=== PATIENT | female | born 1970 | race Caucasian/White ===

== ENCOUNTER → 2017-12-22 | Outpatient (CLI) | payer BC, OTHER ==
[2017-12-22 10:51] VITALS: BP 143/93; PULSE 91; TEMP 98.2
[2017-12-22 10:59] VITALS: BMI 60.1
[2017-12-22 11:35] LABS: HCT 36.8 % (34.0-46.0); HGB 12.3 gm/dL (11.4-16.0); MCH 28.3 pg (25.0-35.0); MCHC 33.4 g/dL (31.0-37.0); MCV 84.9 fL (80.0-100.0); Mean Platelet Volume 7.5; Platelet Count 271 k/uL (150-450); RBC 4.34 m/uL (3.80-5.40); RDW 13.2 % (11.5-15.5)
[2017-12-22 11:48] LABS: ALT 21 U/L (9-52); AST 19 U/L (14-36); Albumin 4.3 g/dL (3.5-5.0); Alkaline Phosphatase 107 U/L (38-126); Anion Gap 11 mmol/L; Blood Urea Nitrogen 16 mg/dL (7-17); Calcium 9.7 mg/dL (8.4-10.2); Carbon Dioxide 26 mmol/L (22-30); Chloride 104 mmol/L (98-107); Cholesterol 180 mg/dL (<200); Glucose 100 mg/dL (74-99); HDL Cholesterol 51 mg/dL (40-60); LDL Cholesterol,Calculated 116 mg/dL (0-99); Potassium 4.5 mmol/L (3.5-5.1); Sodium 141 mmol/L (137-145); Total Bilirubin 0.3 mg/dL (0.2-1.3); Total Protein 7.5 g/dL (6.3-8.2); Triglycerides 66 mg/dL (<150)
[2017-12-22 15:48] LABS: Iron Saturation 22.26 (12.00-45.00)
[2017-12-22 15:57] LABS: Folate, Serum 9.5 ng/mL
[2017-12-22 16:25] LABS: Vitamin D 25 Hydroxy 12.8 ng/mL (30.0-100.0)
--- NOTE | 2018-01-21 22:03 | P.HPBAR ---
Bariatric H&P - History & Physicial H&P Date: 12/22/17 History & Physicial: Visit/CC: Patient initial contact: Initial weight: Initial weight in pounds: Height: Initial BMI: Last weight: Current weight: Current weight in pounds: Current BMI: Margaret body weight (based on NIH guidelines): Excess body weight loss: The patient is a 47 year-old F who presents for Bariatric Assessment. DATE OF SERVICE: 12/22/2017 REASON FOR CONSULTATION: Initial bariatric evaluation. HISTORY OF PRESENT ILLNESS: Roxann Nielsen is a 47-year-old female presents for her initial assessment at the bariatric program. She is considering the gastric bypass. She is currently undergoing medical supervised weight loss with her primary care provider. She denies any diabetes in her family. She reports chronic back pain. She reports need for bilateral knee replacement where the right his been replaced secondary to end-stage osteoarthritis. Her highest personal weight was 389 pounds. Today she comes in with 342 pounds. She has lost 47 pounds with medical supervised weight loss. She has achieved 19 % excess weight loss. She reports ALLERGIES to eating oranges. No reports of inflammatory bowel disease in herself or family. No reports of lupus or multiple sclerosis, stomach or esophageal cancer within herself or her family. She reports moderate gastroesophageal reflux disease. She also reports chronic snoring and potential obstructive sleep apnea. Currently she is exercising daily. She has now lost 47 pounds since medical supervised weight loss in less than a year. She is looking to making lifestyle changes on behalf of her children. Her height of 5 foot 3-1/4 inch, her ideal body weight is 140 pounds. She is 202 pounds overweight. Her initial body mass index was 60.5 now down to 60.2. Again her highest weight was 389 pounds. Today she comes at a weight of 342 pounds. PAST MEDICAL HISTORY: 1. Morbid obesity. 2. Body mass index of 68.5, highest. 3. Osteoarthritis of the knees. 4. Obstructive sleep apnea. PAST SURGICAL HISTORY: 1. Right knee replacement HOME MEDICATIONS: 1. Adipex ALLERGIES: Denies. SOCIAL HISTORY: No active tobacco use. Past tobacco abuse FAMILY HISTORY: No family history of ulcerative colitis disease or Crohn's disease. Family history of morbid obesity. No lupus in the family. No reports of stomach or esophageal cancer. REVIEW OF ORGAN SYSTEMS: CONSTITUTIONAL: Her height of 5 foot 3-1/4 inch, her ideal body weight is 140 pounds. She is 202 pounds overweight. Her initial body mass index was 60.5 now down to 60.2. Again her highest weight was 389 pounds. Today she comes at a weight of 342 pounds. HEENT: Denies any active troubles with vision or hearing. No troubles with swallowing. ENDOCRINE: No diabetes. No hypothyroidism. CARDIOVASCULAR: No reports of palpitations or heart attacks or chest pain. RESPIRATORY: Has daytime somnolence. No asthma. GI: Denies any bright red blood per rectum. No diarrhea or constipation. Has gastroesophageal reflux disease. MUSCULOSKELETAL: Has lower back pain and joint pain. Has osteoarthritis of the knees. NEURO: No headaches. No seizure disorders. PSYCH: No depression or suicidal ideation. RHEUMATOLOGIC: No lupus. No rheumatoid arthritis. HEMATOLOGIC: Denies any abnormal bleeding or bruising. No personal history of DVTs. SKIN: No rash. No skin cancer. PHYSICAL EXAM: VITAL SIGNS: Height 5 foot 3.25 inches, weight 342 pounds. BMI 60.2. Vital Signs Temp 98.2 F 12/22/17 10:45 Pulse 91 12/22/17 10:45 Resp BP 143/93 12/22/17 10:45 Pulse Ox GENERAL: Well-developed in no acute distress. HEENT: No scleral icterus. Extraocular movements grossly intact. Hears conversational speech. No nasal drainage. NECK: Supple without lymphadenopathy. CHEST: Nonlabored respirations with equal bilateral excursions. CARDIOVASCULAR: Regular rate and regular rhythm. Distal 2+ pulses. ABDOMEN: Obese, soft, nontender, nondistended. MUSCULOSKELETAL: No clubbing, cyanosis. Gross strength 5/5 distal lower extremities. NEURO: No focal or lateralizing signs. Cranial nerves 2 through 12 grossly within normal limits. PSYCH: Appropriate affect. Alert and oriented to person, place and time. SKIN: Good skin turgor. Well perfused. ASSESSMENT: 1. Morbid obesity due to excess calories. 2. Body mass index of 68.5 down to 60.2. 3. Osteoarthritis of the knees. 4. Previous right knee replacement 5. Osteoarthritis of the lower back. 6. Obstructive sleep apnea. 7. Hypertensive heart disease. 8. Dietary surveillance and counseling. 9. Family history of morbid obesity. PLAN: 1. Surgical options including a band, gastric bypass, sleeve gastrectomy were described in detail. Alternatives such as gastric balloon including duodenal switch were described. 2. The [place] [facility] collaborative data and outcomes calculator were described with surgical options. 3. Recommend a bariatric metabolic panel to evaluate for micro- including macronutrient deficiencies. 4. For history of daytime somnolence, recommend evaluation and treatment for sleep apnea. 5. Dietary surveillance and counseling was reviewed, I have asked increased protein intake to at least 80 grams daily. I have recommended [facility] to monitor diet. 6. Will need cardiac risk assessment. 7. Recommend medical risk assessment. 8. Psych assessment per insurance guidelines. 9. Follow up upon completion of upper endoscopy. 10. Recommend 12-lead EKG prior history of essential hypertension. 11. Recommend upper endoscopy. Thank you for this consultation. Laboratory Last Values WBC 7.0 k/uL (3.8-10.6) 12/22/17 11:13 RBC 4.34 m/uL (3.80-5.40) 12/22/17 11:13 Hgb 12.3 gm/dL (11.4-16.0) 12/22/17 11:13 Hct 36.8 % (34.0-46.0) 12/22/17 11:13 MCV 84.9 fL (80.0-100.0) 12/22/17 11:13 MCH 28.3 pg (25.0-35.0) 12/22/17 11:13 MCHC 33.4 g/dL (31.0-37.0) 12/22/17 11:13 RDW 13.2 % (11.5-15.5) 12/22/17 11:13 Plt Count 271 k/uL (150-450) 12/22/17 11:13 Sodium 141 mmol/L (137-145) 12/22/17 11:13 Potassium 4.5 mmol/L (3.5-5.1) 12/22/17 11:13 Chloride 104 mmol/L (98-107) 12/22/17 11:13 Carbon Dioxide 26 mmol/L (22-30) 12/22/17 11:13 Anion Gap 11 mmol/L 12/22/17 11:13 BUN 16 mg/dL (7-17) 12/22/17 11:13 Creatinine 0.60 mg/dL (0.52-1.04) 12/22/17 11:13 Est GFR (MDRD) Af Amer >60 (>60 ml/min/1.73 sqM) 12/22/17 11:13 Est GFR (MDRD) Non-Af >60 (>60 ml/min/1.73 sqM) 12/22/17 11:13 Glucose 100 mg/dL (74-99) H 12/22/17 11:[address] Glu mg/dL 97 12/22/17 11:13 Hemoglobin A1c 5.0 % (4.0-6.0) 12/22/17 11:13 Calcium 9.7 mg/dL (8.4-10.2) 12/22/17 11:13 Iron 75 ug/dL (50-170) 12/22/17 11:13 TIBC 337 ug/dL (228-460) 12/22/17 11:13 Iron Saturation 22.26 (12.00-45.00) 12/22/17 11:13 Ferritin 13.9 ng/mL (10.0-291.0) 12/22/17 11:13 Total Bilirubin 0.3 mg/dL (0.2-1.3) 12/22/17 11:13 AST 19 U/L (14-36) 12/22/17 11:13 ALT 21 U/L (9-52) 12/22/17 11:13 Alkaline Phosphatase 107 U/L (38-126) 12/22/17 11:13 Total Protein 7.5 g/dL (6.3-8.2) 12/22/17 11:13 Albumin 4.3 g/dL (3.5-5.0) 12/22/17 11:13 Triglycerides 66 mg/dL (<150) 12/22/17 11:13 Cholesterol 180 mg/dL (<200) 12/22/17 11:13 LDL Cholesterol, Calc 116 mg/dL (0-99) H 12/22/17 11:13 HDL Cholesterol 51 mg/dL (40-60) 12/22/17 11:13 Vitamin B1 51 ug/L (38-122) 12/22/17 11:13 Vitamin B12 744.0 pg/mL (200.0-944.0) 12/22/17 11:13 Vitamin D 25-Hydroxy 12.8 ng/mL (30.0-100.0) L 12/22/17 11:13 Folate 9.5 ng/mL 12/22/17 11:13 TSH 1.470 mIU/L (0.465-4.680) 12/22/17 11:13 EKG EKG PERFORMED 12/22/17 11:13 Vitamin D is low. Recommend vitamin D supplement EKG is abnormal. Will need cardiac risk assessment. Results - Labs 12/22/17 11:13 12/22/17 11:13 Bariatric Checklist Checklist: Plan: Checklist: EGD: 1. Hiatal hernia: 2. H. Pylori: HgbA1c: Vitamin D: Smoking: Primary care physician referral: Psychiatry clearance: Cardiology clearance: Sleep study: Diet journal: VTE risk score: VTE risk level: Rehab needs at discharge:
== END | disposition home or self-care (01) ==
LOC: BARWHC3 10:00
PROVIDERS: ATTEND Surgery Plastic and Reconstructive Surgery
DX: Z48.815 Encounter for surgical aftercare following surgery on the digestive system (principal); E66.01 Morbid (severe) obesity due to excess calories; M17.0 Bilateral primary osteoarthritis of knee; M47.816 Spondylosis without myelopathy or radiculopathy, lumbar region; G47.33 Obstructive sleep apnea (adult) (pediatric); E88.81 Metabolic syndrome and other insulin resistance; E44.0 Moderate protein-calorie malnutrition; E55.9 Vitamin D deficiency, unspecified; I11.9 Hypertensive heart disease without heart failure; Z68.44 Body mass index [BMI] 60.0-69.9, adult; Z71.3 Dietary counseling and surveillance; Z96.651 Presence of right artificial knee joint; Z79.899 Other long term (current) drug therapy; Z87.891 Personal history of nicotine dependence
CPT/HCPCS: 36415; 80053; 80061; 82306; 82607; 82728; 82746; 83036; 83540; 83550; 84425; 84443; 85027; 93005; 99211

== ENCOUNTER 2018-02-01 09:08 | Day surgery (SDC) | payer BC, OTHER ==
[2018-01-30 15:50] VITALS: BMI 61.2
[~2018-02-01 09:08] MED LIST: LACTATED RINGERS 1,000 ML IV SCH
--- NOTE | 2018-02-01 09:50 | P.GSHP ---
History of Present Illness H&P Date: 02/01/18 CHIEF COMPLAINT: GERD HISTORY OF PRESENT ILLNESS: The patient is a 47-year-old female who presents reports gastroesophageal reflux disease. Upper endoscopy was offered for further evaluation and management. PAST MEDICAL HISTORY: Please see list. PAST SURGICAL HISTORY: Please see list. MEDICATIONS: Please see list. ALLERGIES: Please see list. SOCIAL HISTORY: No illicit drug use FAMILY HISTORY: No reports of Crohn disease or ulcerative colitis. REVIEW OF ORGAN SYSTEMS: CONSTITUTIONAL: No reports of fevers or chills. GI: Denies any blood in stools or constipation. PHYSICAL EXAM: VITAL SIGNS: Stable GENERAL: Well-developed and pleasant in no acute distress. HEENT: No scleral icterus. Extraocular movements grossly intact. Moist buccal mucosa. NECK: Supple without lymphadenopathy. CHEST: Unlabored respirations. Equal bilateral excursions. CARDIOVASCULAR: Regular rate and rhythm. Distal 2+ pulses. ABDOMEN: Soft, nondistended. MUSCULOSKELETAL: No clubbing, cyanosis, or edema. ASSESSMENT: 1. Gastroesophageal reflux disease PLAN: 1. Recommend proceeding with an upper endoscopy Past Medical History Past Medical History: Cancer, Sleep Apnea/CPAP/BIPAP Additional Past Medical History / Comment(s): mild sleep apnea-just had sleep study, hx cervical cancer years ago, hx. kidney stones History of Any Multi-Drug Resistant Organisms: None Reported Past Surgical History: Orthopedic Surgery Additional Past Surgical History / Comment(s): right knee surg.-took bone graft from hip Past Anesthesia/Blood Transfusion Reactions: No Reported Reaction Past Psychological History: No Psychological Hx Reported Smoking Status: Former smoker Past Alcohol Use History: None Reported Additional Past Alcohol Use History / Comment(s): quit smoking 2002, smoked on & off since 1988 prior to quitting Past Drug Use History: None Reported - Past Family History Mother Family Medical History: No Reported History Medications and Allergies Home Medications Medication Instructions Recorded Confirmed Type Phentermine HCl [Adipex P] 15 mg PO DAILY 12/22/17 01/30/18 History Allergies Allergy/AdvReac Type Severity Reaction Status Date / Time No Known Allergies Allergy Verified 01/30/18 15:20
[2018-02-01 10:09] VITALS: TEMP 99.1
[2018-02-01] MEDS ORDERED: LIDOCAINE 1% 20 ML VIAL (10MG/ML) FOR IV START INTRADERMA ONE (10:09)
[2018-02-01] MEDS ORDERED: PROPOFOL 10 MG/ML 20 ML VIAL IV ONE (10:20)
[2018-02-01] MEDS ORDERED: LIDOCAINE 1% INJ 10MG/ML (20 ML MDV) ONE (10:20)
--- NOTE | 2018-02-01 10:33 | P.PCN ---
Date of Procedure: 02/01/18 Description of Procedure: PREOPERATIVE DIAGNOSIS: Gastroesophageal reflux disease. Morbid obesity. POSTOPERATIVE DIAGNOSIS: Morbid obesity. Gastritis. Gastroesophageal reflux disease. Diaphragmatic hiatal hernia without obstruction. OPERATION: Esophagogastroduodenoscopy with biopsies along antrum. SURGEON: Louisa Strong MD ANESTHESIA: MAC. INDICATIONS: The patient is a 47-year-old female who presents with a history of reflux disease. Benefits and risks of the procedure were described. Informed consent was obtained. DESCRIPTION: The patient was brought into the endoscopy suite and laid in the left lateral decubitus position. An Olympus gastroscope was passed along the posterior oropharynx down to the distal esophagus where the squamocolumnar junction was encountered at 36 cm from the incisors. The stomach was entered and no bile reflux was found. Additional findings are listed below. Biopsies with cold forceps were obtained of the antrum. The first through third portion of the duodenum was examined and unremarkable. Retroflexion of the scope confirmed Hill grade 4 lower esophageal valve. The squamocolumnar junction demostrated LA grade A erosive esophagitis. The stomach was desufflated. The patient tolerated the procedure well. FINDINGS: Squamocolumnar junction 36 cm from the incisors. Diaphragmatic hiatus at 38 cm. Hiatal hernia 2 cm. Hill grade 4 lower esophageal valve. LA grade A erosive esophagitis. No active duodenitis. Mild gastritis. RECOMMENDATIONS: Further recommendations pending results of pathology report. Upper endoscopy as needed. Plan - Discharge Summary New Discharge Prescriptions: No Action Phentermine HCl [Adipex P] 15 mg PO DAILY Topiramate [Topamax] 1 tab PO BID Discharge Medication List Phentermine HCl [Adipex P] 15 mg PO DAILY 12/22/17 [History] Topiramate [Topamax] 1 tab PO BID 02/01/18 [History]
[2018-02-01 10:57] VITALS: RESP 16
[2018-02-01 11:32] VITALS: BP 130/78; PULSE 73
== END 2018-02-01 11:33 | disposition home or self-care (01) ==
LOC: ORWHC2ENDO 09:08
PROVIDERS: ATTEND Surgery Plastic and Reconstructive Surgery
DX: K29.50 Unspecified chronic gastritis without bleeding (principal); K22.10 Ulcer of esophagus without bleeding; K44.9 Diaphragmatic hernia without obstruction or gangrene; E66.01 Morbid (severe) obesity due to excess calories; Z68.44 Body mass index [BMI] 60.0-69.9, adult; R07.9 Chest pain, unspecified; G47.33 Obstructive sleep apnea (adult) (pediatric); Z99.89 Dependence on other enabling machines and devices; Z87.442 Personal history of urinary calculi; Z87.891 Personal history of nicotine dependence; Z85.41 Personal history of malignant neoplasm of cervix uteri; Z79.899 Other long term (current) drug therapy
CPT/HCPCS: 81025; 88305; 43239; J2001; J2704

== ENCOUNTER → 2018-02-15 | Outpatient (CLI) | payer BC, OTHER ==
[2018-02-15 15:27] VITALS: BP 155/93; PULSE 77; TEMP 97.7; BMI 59.5
--- NOTE | 2018-03-11 15:42 | P.PN ---
Subjective Progress Note Date: 02/15/18 DATE OF SERVICE: 02/15/2018 CHIEF COMPLAINT: Bariatric evaluation HISTORY OF PRESENT ILLNESS: Roxann Nielsen is a 47-year-old female who initially presented to the Bariatric center, December 2017. She reports her highest personal weight of 395 pounds. She is on a medical supervised weight loss. She had an abnormal EKG. Her highest personal weight was 389 pounds. Today she comes in with 338 pounds. She lost 3 pounds in 2 months. She has lost 51 pounds with medical supervised weight loss. She has achieved 20 % excess weight loss. Her height of 5 foot 3-1/4 inch, her ideal body weight is 140 pounds. She is 198 pounds overweight. Her initial body mass index was 68.5 now down to 59.6. PAST MEDICAL HISTORY: 1. Morbid obesity. 2. Body mass index of 68.5, highest. 3. Osteoarthritis of the knees. 4. Obstructive sleep apnea. PAST SURGICAL HISTORY: 1. Right knee replacement 2. Upper endoscopy HOME MEDICATIONS: 1. Adipex ALLERGIES: Denies. SOCIAL HISTORY: No active tobacco use. Past tobacco abuse FAMILY HISTORY: No family history of ulcerative colitis disease or Crohn's disease. Family history of morbid obesity. No lupus in the family. No reports of stomach or esophageal cancer. REVIEW OF ORGAN SYSTEMS: CONSTITUTIONAL: Her height of 5 foot 3-1/4 inch, her ideal body weight is 140 pounds. She is 202 pounds overweight. Her initial body mass index was 60.5 now down to 60.2. Again her highest weight was 389 pounds. Today she comes at a weight of 342 pounds. HEENT: Denies any active troubles with vision or hearing. No troubles with swallowing. ENDOCRINE: No diabetes. No hypothyroidism. CARDIOVASCULAR: No reports of palpitations or heart attacks or chest pain. RESPIRATORY: Has daytime somnolence. No asthma. GI: Denies any bright red blood per rectum. No diarrhea or constipation. Has gastroesophageal reflux disease. MUSCULOSKELETAL: Has lower back pain and joint pain. Has osteoarthritis of the knees. NEURO: No headaches. No seizure disorders. PSYCH: No depression or suicidal ideation. RHEUMATOLOGIC: No lupus. No rheumatoid arthritis. HEMATOLOGIC: Denies any abnormal bleeding or bruising. No personal history of DVTs. SKIN: No rash. No skin cancer. PHYSICAL EXAM: VITAL SIGNS: Height 5 foot 3.25 inches, weight 338 pounds. BMI 59.6. Vital Signs Temp 97.7 F 02/15/18 15:24 Pulse 77 02/15/18 15:24 Resp BP 155/93 02/15/18 15:24 Pulse Ox GENERAL: Well-developed in no acute distress. HEENT: No scleral icterus. Extraocular movements grossly intact. Hears conversational speech. No nasal drainage. NECK: Supple without lymphadenopathy. CHEST: Nonlabored respirations with equal bilateral excursions. CARDIOVASCULAR: Regular rate and regular rhythm. Distal 2+ pulses. ABDOMEN: Obese, soft, nontender, nondistended. MUSCULOSKELETAL: No clubbing, cyanosis. Gross strength 5/5 distal lower extremities. NEURO: No focal or lateralizing signs. Cranial nerves 2 through 12 grossly within normal limits. PSYCH: Appropriate affect. Alert and oriented to person, place and time. SKIN: Good skin turgor. Well perfused. Laboratory Last Values WBC 7.0 k/uL (3.8-10.6) 12/22/17 11:13 RBC 4.34 m/uL (3.80-5.40) 12/22/17 11:13 Hgb 12.3 gm/dL (11.4-16.0) 12/22/17 11:13 Hct 36.8 % (34.0-46.0) 12/22/17 11:13 MCV 84.9 fL (80.0-100.0) 12/22/17 11:13 MCH 28.3 pg (25.0-35.0) 12/22/17 11:13 MCHC 33.4 g/dL (31.0-37.0) 12/22/17 11:13 RDW 13.2 % (11.5-15.5) 12/22/17 11:13 Plt Count 271 k/uL (150-450) 12/22/17 11:13 Sodium 141 mmol/L (137-145) 12/22/17 11:13 Potassium 4.5 mmol/L (3.5-5.1) 12/22/17 11:13 Chloride 104 mmol/L (98-107) 12/22/17 11:13 Carbon Dioxide 26 mmol/L (22-30) 12/22/17 11:13 Anion Gap 11 mmol/L 12/22/17 11:13 BUN 16 mg/dL (7-17) 12/22/17 11:13 Creatinine 0.60 mg/dL (0.52-1.04) 12/22/17 11:13 Est GFR (MDRD) Af Amer >60 (>60 ml/min/1.73 sqM) 12/22/17 11:13 Est GFR (MDRD) Non-Af >60 (>60 ml/min/1.73 sqM) 12/22/17 11:13 Glucose 100 mg/dL (74-99) H 12/22/17 11:[address] Glu mg/dL 97 12/22/17 11:13 Hemoglobin A1c 5.0 % (4.0-6.0) 12/22/17 11:13 Calcium 9.7 mg/dL (8.4-10.2) 12/22/17 11:13 Iron 75 ug/dL (50-170) 12/22/17 11:13 TIBC 337 ug/dL (228-460) 12/22/17 11:13 Iron Saturation 22.26 (12.00-45.00) 12/22/17 11:13 Ferritin 13.9 ng/mL (10.0-291.0) 12/22/17 11:13 Total Bilirubin 0.3 mg/dL (0.2-1.3) 12/22/17 11:13 AST 19 U/L (14-36) 12/22/17 11:13 ALT 21 U/L (9-52) 12/22/17 11:13 Alkaline Phosphatase 107 U/L (38-126) 12/22/17 11:13 Total Protein 7.5 g/dL (6.3-8.2) 12/22/17 11:13 Albumin 4.3 g/dL (3.5-5.0) 12/22/17 11:13 Triglycerides 66 mg/dL (<150) 12/22/17 11:13 Cholesterol 180 mg/dL (<200) 12/22/17 11:13 LDL Cholesterol, Calc 116 mg/dL (0-99) H 12/22/17 11:13 HDL Cholesterol 51 mg/dL (40-60) 12/22/17 11:13 Vitamin B1 51 ug/L (38-122) 12/22/17 11:13 Vitamin B12 744.0 pg/mL (200.0-944.0) 12/22/17 11:13 Vitamin D 25-Hydroxy 12.8 ng/mL (30.0-100.0) L 12/22/17 11:13 Folate 9.5 ng/mL 12/22/17 11:13 TSH 1.470 mIU/L (0.465-4.680) 12/22/17 11:13 EKG EKG PERFORMED 12/22/17 11:13 LDL elevated Vitamin D is low. EKG is abnormal with possible anterior infarct. EGD FINDINGS: Squamocolumnar junction 36 cm from the incisors. Diaphragmatic hiatus at 38 cm. Hiatal hernia 2 cm. Hill grade 4 lower esophageal valve. LA grade A erosive esophagitis. No active duodenitis. Mild gastritis. ASSESSMENT: 1. Morbid obesity due to excess calories. 2. Body mass index of 68.5 down to 59.6. 3. Osteoarthritis of the knees. 4. Previous right knee replacement 5. Osteoarthritis of the lower back. 6. Obstructive sleep apnea. 7. Hypertensive heart disease. 8. Dietary surveillance and counseling. 9. Family history of morbid obesity. 10. Vitamin D deficiency 11. Abnormal EKG 12. Hiatal hernia 13. Gastroesophageal reflux disease PLAN: 1. Recommend sign writer letterer or painter risk assessment for abnormal EKG. 2. Vitamin D supplement 10,000 units daily. 3. Will need medical risk assessment. 4. At this time, she is evaluating into the gastric bypass. Objective - Vital Signs Vital signs: Vital Signs Temp 97.7 F 02/15/18 15:24 Pulse 77 02/15/18 15:24 Resp BP 155/93 02/15/18 15:24 Pulse Ox Intake & Output 02/14/18 02/15/18 02/15/18 18:59 06:59 18:59 Weight 153.813 kg
== END | disposition home or self-care (01) ==
LOC: BARWHC3 13:54
PROVIDERS: ATTEND Surgery Plastic and Reconstructive Surgery
DX: E66.01 Morbid (severe) obesity due to excess calories (principal); M17.0 Bilateral primary osteoarthritis of knee; M19.90 Unspecified osteoarthritis, unspecified site; G47.33 Obstructive sleep apnea (adult) (pediatric); I11.9 Hypertensive heart disease without heart failure; E55.9 Vitamin D deficiency, unspecified; K21.9 Gastro-esophageal reflux disease without esophagitis; K44.9 Diaphragmatic hernia without obstruction or gangrene; R94.31 Abnormal electrocardiogram [ECG] [EKG]; Z96.651 Presence of right artificial knee joint; Z84.89 Family history of other specified conditions; Z71.3 Dietary counseling and surveillance; Z79.899 Other long term (current) drug therapy
CPT/HCPCS: 99211

== ENCOUNTER → 2018-08-21 | Outpatient (CLI) | payer BC, OTHER ==
[2018-08-21 14:10] VITALS: BMI 59.5
== END ==
LOC: BARWHC3 08:38
PROVIDERS: ATTEND Surgery Plastic and Reconstructive Surgery
DX: E66.01 Morbid (severe) obesity due to excess calories (principal)
CPT/HCPCS: 97804

== ENCOUNTER → 2019-04-18 | Outpatient (CLI) | payer BC ==
--- NOTE | 2019-04-18 17:07 | P.PN ---
Subjective Progress Note Date: 04/18/19 DATE OF SERVICE: 04/18/2019 CHIEF COMPLAINT: Morbid obesity HISTORY OF PRESENT ILLNESS: Roxann Nielsen is a 49-year-old female who initially presented to the Bariatric center, December 2017. As a result of her morbid obesity, she developed osteoarthritis of the knees and sleep apnea. She completed medical supervised weight loss. She completed cardiac including medical clearances. She has no reports of easy bruising. She is doing well. Her highest personal weight was 395 pounds. Today she comes in 342 pounds from 338 pounds, 14 months ago. She has gained 4 pounds in 14 months. She has lost 53 pounds with medical supervised weight loss. She has achieved 21 % excess weight loss. Her height of 5 foot 3-1/4 inch, her ideal body weight is 140 pounds. She is 202 pounds overweight. Her initial body mass index was 69.6 now down to 60.3. PAST MEDICAL HISTORY: 1. Morbid obesity due to excess calories. 2. Body mass index of 69.6, highest. 3. Osteoarthritis of the knees. 4. Obstructive sleep apnea. PAST SURGICAL HISTORY: 1. Right knee replacement 2. Upper endoscopy HOME MEDICATIONS: 1. Adipex ALLERGIES: Denies. SOCIAL HISTORY: No active tobacco use. Past tobacco abuse FAMILY HISTORY: No family history of ulcerative colitis disease or Crohn's disease. Family history of morbid obesity. No lupus in the family. No reports of stomach or esophageal cancer. REVIEW OF ORGAN SYSTEMS: CONSTITUTIONAL: Her height of 5 foot 3-1/4 inch, her ideal body weight is 140 pounds. She is 203 pounds overweight. Her initial body mass index was 69.6. Her highest weight was 395 pounds. HEENT: Denies any active troubles with vision or hearing. No troubles with swallowing. ENDOCRINE: No diabetes. No hypothyroidism. CARDIOVASCULAR: No reports of palpitations or heart attacks or chest pain. RESPIRATORY: Has daytime somnolence. No asthma. GI: Denies any bright red blood per rectum. No diarrhea or constipation. Has gastroesophageal reflux disease. MUSCULOSKELETAL: Has lower back pain and joint pain. Has osteoarthritis of the knees. NEURO: No headaches. No seizure disorders. PSYCH: No depression or suicidal ideation. RHEUMATOLOGIC: No lupus. No rheumatoid arthritis. HEMATOLOGIC: Denies any abnormal bleeding or bruising. No personal history of DVTs. SKIN: No rash. No skin cancer. PHYSICAL EXAM: VITAL SIGNS: Height 5 foot 3.25 inches, weight 342 pounds. BMI 60.3. Vital Signs Temp 98.1 F 04/18/19 16:29 Pulse 71 04/18/19 16:29 Resp BP 137/73 04/18/19 16:29 Pulse Ox GENERAL: Well-developed in no acute distress. HEENT: No scleral icterus. Extraocular movements grossly intact. Hears conversational speech. No nasal drainage. NECK: Supple without lymphadenopathy. CHEST: Nonlabored respirations with equal bilateral excursions. CARDIOVASCULAR: Regular rate and regular rhythm. Distal 2+ pulses. ABDOMEN: Obese, soft, nontender, nondistended. MUSCULOSKELETAL: No clubbing, cyanosis. Gross strength 5/5 distal lower extremities. NEURO: No focal or lateralizing signs. Cranial nerves 2 through 12 grossly within normal limits. PSYCH: Appropriate affect. Alert and oriented to person, place and time. SKIN: Good skin turgor. Well perfused. ASSESSMENT: 1. Morbid obesity due to excess calories. 2. Body mass index of 69.6 down to 60.3. 3. Osteoarthritis of the knees. 4. Previous right knee replacement 5. Osteoarthritis of the lower back. 6. Obstructive sleep apnea. 7. Hypertensive heart disease. 8. Dietary surveillance and counseling. 9. Family history of morbid obesity. 10. Vitamin D deficiency 11. Abnormal EKG 12. Hiatal hernia 13. Gastroesophageal reflux disease PLAN: 1. Bariatric options between a sleeve, band and a [id number] gastric bypass were reviewed in detail. The patient elected for a gastric bypass. Robotic assisted approach described. 2. The [place] [facility] Data was also reviewed with benefits and risks as described. 3. An 8 page second-generation bariatric consent form was reviewed in detail including potential of bleeding, infection, leaks, adequate weight loss, nutritional deficiencies which the patient demonstrated understanding of the risks. 4. A 2 week high-protein low caloric 800 kcal diet described to address hepatomegaly. 5. Preoperative labs including complete metabolic panel and CBC with type and screen recommended. 6. DVT prophylaxis per [place] [facility] collaborative. 7. Antibiotic prophylaxis. 8. Inpatient hospitalization anticipated for more than 2 nights. 9. All questions and concerns were addressed with the patient. Objective - Vital Signs Vital signs: Vital Signs Temp 98.1 F 04/18/19 16:29 Pulse 71 04/18/19 16:29 Resp BP 137/73 04/18/19 16:29 Pulse Ox Intake & Output 04/17/19 04/18/19 04/18/19 18:59 06:59 18:59 Weight 155.582 kg
== END | disposition home or self-care (01) ==
CPT/HCPCS: 99211

== ENCOUNTER → 2019-04-20 | Outpatient (CLI) | payer BC | END | disposition home or self-care (01) | LOC: LABPAT 16:00 | PROVIDERS: ATTEND Surgery Plastic and Reconstructive Surgery | DX: Z53.9 Procedure and treatment not carried out, unspecified reason (principal) | CPT/HCPCS: 80053; 85027; 86850; 86900; 86901; 93005 ==

== ENCOUNTER 2019-04-30 05:53 | Inpatient (IN) | payer BC ==
[2019-04-20 17:05] LABS: ALT 19 U/L (9-52); AST 29 U/L (14-36); African American GFR (CKD) >90 (>60 ml/min/1.73 sqM); Albumin 4.5 g/dL (3.5-5.0); Alkaline Phosphatase 102 U/L (38-126); Anion Gap 13 mmol/L; Blood Urea Nitrogen 17 mg/dL (7-17); Calcium 9.9 mg/dL (8.4-10.2); Carbon Dioxide 23 mmol/L (22-30); Chloride 103 mmol/L (98-107); Glucose 88 mg/dL (74-99); Potassium 4.1 mmol/L (3.5-5.1); Sodium 139 mmol/L (137-145); Total Bilirubin 0.4 mg/dL (0.2-1.3); Total Protein 7.7 g/dL (6.3-8.2)
[2019-04-20 21:36] LABS: HCT 37.6 % (34.0-46.0); HGB 12.6 gm/dL (11.4-16.0); MCH 27.5 pg (25.0-35.0); MCHC 33.6 g/dL (31.0-37.0); MCV 81.9 fL (80.0-100.0); Mean Platelet Volume 9.1; Platelet Count 294 k/uL (150-450); RBC 4.59 m/uL (3.80-5.40); RDW 14.6 % (11.5-15.5)
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
[~2019-04-30 05:53] MED LIST changes: -LACTATED RINGERS 1,000 ML IV SCH; +ceFAZolin 3 GM in SODIUM CHLORIDE 0.9% 100 ML IVPB ONE
[2019-04-30] MEDS ORDERED: ENOXAPARIN 40 MG/0.4 ML SYRINGE SQ STA (06:00)
[2019-04-30] MEDS ORDERED: DEXAMETHASONE SOD PHOSPHATE 10 MG/ML 1 ML VIAL IV ONE (06:00)
[2019-04-30] MEDS ORDERED: SCOPOLAMINE 1.5MG/72HR PATCH TRANSDERM STA (06:00)
[2019-04-30] MEDS ORDERED: SCOPOLAMINE 1.5MG/72HR PATCH TRANSDERM ONE (06:00)
[2019-04-30] MEDS ORDERED: PANTOPRAZOLE 40 MG/10 ML VIAL IV STA (06:00)
[2019-04-30] MEDS ORDERED: ceFAZolin 3 GM in SODIUM CHLORIDE 0.9% 100 ML IVPB ONE (06:00)
[2019-04-30] MEDS ORDERED: MIDAZOLAM 2 MG/2 ML VIAL IV PRN (06:00)
[2019-04-30] MEDS ORDERED: ONDANSETRON 4 MG/2 ML VIAL IVP ONE ×2 (06:00→11:42)
[2019-04-30] MEDS ORDERED: CHLORHEXIDINE GLUCONATE 15 ML CUP MUCOUS MEM ONE (06:15)
[2019-04-30] MEDS ORDERED: LACTATED RINGERS 1,000 ML IV ONE ×2 (06:24→08:18)
[2019-04-30] MEDS ORDERED: LIDOCAINE 1% 20 ML VIAL (10MG/ML) FOR IV START INTRADERMA ONE (06:25)
[2019-04-30] MEDS ORDERED: MIDAZOLAM (PF) 2 MG/2 ML VIAL IVP ONE (06:38)
[2019-04-30] MEDS ORDERED: LIDOCAINE 1% INJ 10MG/ML (20 ML MDV) ONE (07:35)
[2019-04-30] MEDS ORDERED: MIDAZOLAM 2 MG/2 ML VIAL ONE (07:35)
[2019-04-30] MEDS ORDERED: PROPOFOL 10 MG/ML 20 ML VIAL IV ONE (07:35)
[2019-04-30] MEDS ORDERED: NEOSTIGMINE 1 MG/ML 10 ML VIAL ONE (07:35)
[2019-04-30] MEDS ORDERED: GLYCOPYRROLATE 0.2 MG/ML 2 ML VIAL ONE (07:35)
[2019-04-30] MEDS ORDERED: SUCCINYLCHOLINE CHLORIDE VIAL 200 MG/10 ML VIAL IV ONE (07:35)
[2019-04-30] MEDS ORDERED: VECURONIUM 10 MG VIAL IV ONE (07:35)
[2019-04-30] MEDS ORDERED: fentaNYL (PF) 50 MCG/ML 2 ML AMP ONE (07:35)
[2019-04-30] MEDS ORDERED: BUPIVACAIN-EPI 0.5%-1:200,000 30 ML VIAL SQ ONE (08:12)
[2019-04-30] MEDS ORDERED: NALOXONE 0.4 MG/ML 1 ML VIAL IV PRN (10:46)
[2019-04-30] MEDS ORDERED: diphenhydrAMINE 50 MG/ML 1 ML VIAL IVP PRN (10:46)
--- NOTE | 2019-04-30 10:46 | P.OP ---
Date of Procedure: 04/30/19 Description of Procedure: SURGEON: NICOLE DAVIS MD PREOPERATIVE DIAGNOSES: 1. Morbid obesity due to excess calories. 2. Body mass index of 68.5 down to 58.9. 3. Osteoarthritis of the knees. 4. Previous right knee replacement 5. Osteoarthritis of the lower back. 6. Obstructive sleep apnea. 7. Hypertensive heart disease. 8. Dietary surveillance and counseling. 9. Family history of morbid obesity. 10. Vitamin D deficiency 11. Abnormal EKG 12. Hiatal hernia 13. Gastroesophageal reflux disease POSTOPERATIVE DIAGNOSES: 1. Morbid obesity due to excess calories. 2. Body mass index of 68.5 down to 58.9. 3. Osteoarthritis of the knees. 4. Previous right knee replacement 5. Osteoarthritis of the lower back. 6. Obstructive sleep apnea. 7. Hypertensive heart disease. 8. Dietary surveillance and counseling. 9. Family history of morbid obesity. 10. Vitamin D deficiency 11. Abnormal EKG 12. Hiatal hernia 13. Gastroesophageal reflux disease OPERATION: 1. Robotic assisted da Brinda Xi laparoscopic Arabella-en-Y gastric bypass, 150 cm antecolic antegastric Arabella limb, with 21 mm EEA. 2. Intraoperative esophagogastrojejunoscopy. ANESTHESIA: GETA and local ESTIMATED BLOOD LOSS: 20 mL SPECIMENS REMOVED: None. COMPLICATIONS: NONE. INDICATIONS: Roxann Nielsen is a 49-year-old female who initially presented to the Bariatric center, December 2017. She reports her highest personal weight of 395 pounds. Today she comes in with 334 pounds. Her height of 5 foot 3-1/4 inch, her ideal body weight is 140 pounds. She is 194 pounds overweight. Her initial body mass index was 68.5 now down to 58.9. She has history of obstructive sleep apnea and osteoarthritis. She is looking into the gastric bypass. A second- generation bariatric consent form was described in detail including the possibility of protein malnutrition, leaks, gastrojejunal stricture, venous thrombosis, need for further surgery for which she demonstrated understanding. Benefits and risks of the procedure were described at length. Informed consent was obtained. DESCRIPTION: The patient was brought into the operating room theater. She was placed supine. She had received Lovenox subcutaneously for DVT prophylaxis. Additionally she Peridex oral solution as an oral decontaminant was placed per anesthesia. After general induction, the abdomen was prepped and draped in standard sterile fashion. Ioban draping was placed along the abdomen. A robotic da Brinda Xi system was prepped and primed. The xiphoid to umbilicus was measured of 21 cm. Incisions were proposed at 15 cm from the xiphoid. Proposed port sites were marked with indelible marker along the anterior axillary line bilaterally, mid clavicular line bilaterally with each port marked 10 cm from each other. The robotic stapler port was marked for the right midclavicular line including along the left midclavicular line. A 5 mm 0 degrees laparoscopic trocar entry was performed along the left upper quadrant. The abdomen was insufflated to 15 mmHg pressure, which she tolerated well. Diagnostic laparoscopy demonstrated no injury to bowel or viscera. The liver was smooth and unremarkable. An 8 mm camera port was placed left lateral to the umbilicus at the epigastrium, 15 cm distal to the xiphoid. Next, 12-mm robot stapler port was placed along the right mid abdomen. An 12 mm port was exchanged along the left upper quadrant. An 8 mm port was placed on the left lateral abdominal wall under direct visualization Please note that the ports were placed 18 to 20 cm away from the target anatomy of the stomach. Care was taken to check that each robotic arm was safely away from collision with the bed or the patient. At the epigastrium, a medium sized Bisi liver retractor was placed under direct visualization with the Iron Frame Tender placed under the right shoulder of the patient. The patient was repositioned in reverse Trendelenburg position at 14-degrees after lowering the bed. The robot was docked over the patient. Using grasper for arm 3, a grasper for arm 1, including vessel sealer for arm 4, the robotic system was docked and primed as described. Instruments were interchanged by the assistant project manager including endoscissors, the needle hire car driver, and stapler. I had sat at the console. Next, the transverse mesocolon was reflected into the upper abdomen after dividing the mesentery and preparing for the jejunojejunostomy portion of the case. The ligament of Treitz was identified and measured 60 cm antegrade and marked using 3-0 Silk. The jejunum was divided at the 60 cm point using 60-mm white loads above the suture measurement. The biliopancreatic limb was held in place. The Arabella limb was measured 150 cm in an antegrade fashion to avoid tension along the proposed gastrojejunal anastomosis. At 100 cm along the anti-mesenteric border of the Arabella limb, a jejunojejunostomy was proposed whereby enterotomies were created along the biliopancreatic limb including the Arabella limb using a Bovie cautery. A stay suture of 3-0 Slik was placed to align and create the anastomosis. The enterotomies along the anti-mesenteric borders were created followed by unidirectional fire from the patient's right side using 60 mm white load Smart technology robotic stapler. The jejunojejunostomy was found to be hemo static. The enterotomy was closed after horizontal mattress stitch of 3-0 silk used to elevate the enterotomy followed by closure with the robotic stapler blue load. The jejunal limb was temporarily tacked along the left upper quadrant. Attention was now brought to the creation of the gastrojejunostomy. Along the lesser curvature of the stomach between the second and third veins, dissection was made along the retrogastric space to allow first firing of the robotic staple. Green loads of 60 mm staplers were used to divide the stomach to create the gastric pouch. The patient was then prepared for placement of a Orvil. A 21-mm Orvil was selected for placement by the nurse cloth covered helmet puller. The Orvil tubing was placed posterior to the staple line of the gastric pouch and brought out through the left inferior lateral port. I re-scrubbed into the case. The robotic arms were temporarily undocked. The Orvil was then carefully and successfully navigated with the help of the nurse cloth covered helmet puller into the gastric pouch. The sutures were identified and divided. The tubing was from the 21 mm anvil. As the Orvil had been placed, the blind jejunal limb was brought proximally into the upper abdomen. No torsion was found upon the Arabella limb. No tension was identified as the limb was brought along the upper abdomen. The blind jejunal limb was previously opened using endo -scissors with cautery. The 21-mm EEA stapler was brought through the left anterior lateral port site from the left side. The EEA stapler was brought through the open jejunal limb and its needle was deployed at the antimesenteric border where the anvil were mated for approximately 1 minute upon firing. The stapler was removed after irrigating the shaft of the instrument with warm normal saline. Donuts were found to be intact and on both sides. The da Brinda Xi robot arms were then re-docked. I sat at the console. The open jejunal limb defect was closed using 60 mm white loads after releasing any tension from the blind jejunal limb. Care was taken to avoid any long blind limb to avoid candycane syndrome. Reinforcement sutures were placed along the gastrojejunal anastomosis and placed along the 9:00 and 3 o'clock position using 3-0 Vicryl. The Manuel and jejunojejunostomy mesenteric defects were obliterated by her intra-abdominal fat. I then went to the head of the bed to perform the esophagogastrojejunoscopy and a leak test. An Olympus gastroscope was passed along the posterior oropharynx which was unremarkable for any injury to the vocal cords. The scope was passed down to the proximal portion of the pouch, whereby no active bleeding was encountered. Excellent visualization of the gastrojejunostomy anastomosis, including the Arabella limb was encountered with endoscopic image obtained. The anastomosis was found to be patent. The gastrointestinal tract was desufflated. No evidence of intraoperative leak was encountered as the gastric pouch and anastomosis were submerged under normal saline solution. The robot was then undocked. I then went back to the bedside of the patient, whereby with coordinated effort of the assistant project manager, irrigation was aspirated from the upper abdominal cavity. Tisseel was placed circumferentially over the anastomosis of the gastrojejunostomy. The fascial defect of the EEA stapler was closed using Blayne Avitia and 0 Vicryl. All instruments and pneumoperitoneum were evacuated from the abdominal cavity. The port correlating with the EEA stapler device was cleansed with normal saline solution and hydrogen peroxide. The rest of incisions were reapproximated using 4-0 Monocryl in an interrupted subcuticular fashion. Local anesthetic was infiltrated along the skin for postop analgesia. Liquid glue was applied to the skin. OptiFoam dressing was placed along the EEA stapler site. At the end of the procedure, needle, sponge and instrument count had been verified correct by the surgical assist. He had tolerated the procedure well and was extubated and taken to the postanesthesia unit in stable condition. Intraoperative findings were described to the patient's family who were very pleased with the level of care. Total console time 94 inutes Operative Findings: 1. Biliopancreatic limb 60 cm 2. Bypass performed using 150 cm arabella limb 3. Douglas defect and jejunojejunostomy defect obliterated by moderate intra- abdominal fat. 4. Leak test negative with gastrojejunal anastomosis patent and hemostatic. 5. Reinforcement sutures were placed along the gastrojejunal anastomosis 6. No fatty liver disease or hepatomegaly
[2019-04-30] MEDS: HYDROmorphone 0.5 MG/0.5 ML SYRINGE IVP PRN ×2 (11:12→11:25)
[2019-04-30] MEDS: LACTATED RINGERS 1,000 ML IV SCH ×2 (11:26→12:43)
[2019-04-30] MEDS ORDERED: ACETAMINOPHEN IV (For NPO) 1,000 MG in EMPTY BAG 1 BAG IVPB ONE (11:30)
[2019-04-30] MEDS: 0.9% NACL WITH KCL 20 MEQ/L 1,000 ML IV SCH ×2 (12:44→13:20)
[2019-04-30] MEDS: HYOSCYAMINE ORAL DROPS 1.875 MG/15 ML BOTTLE PO SCH ×3 (12:52→23:31)
[2019-04-30] MEDS: SIMETHICONE 40 MG/0.6 ML DROPS 2,000 MG/30 ML BOTTLE PO SCH ×3 (12:52→23:30)
[2019-04-30] MEDS: ALBUTEROL NEBULIZED 2.5 MG/3 ML INHALATION SCH ×3 (12:54→20:19)
[2019-04-30] MEDS: ONDANSETRON 4 MG/2 ML VIAL IVP SCH ×3 (13:32→23:31)
[2019-04-30] MEDS: HYDROmorphone 1 MG/ML 1 ML SYRINGE IVP PRN ×3 (15:44→23:30)
[2019-04-30] MEDS: ceFAZolin 3 GM in SODIUM CHLORIDE 0.9% 100 ML IVPB SCH ×2 (15:45→23:31)
--- NOTE | 2019-04-30 16:18 | P.PN ---
Progress Note - Text Progress Note Date: 04/30/19 She is doing well. Minimal nausea. She is using her incentive spirometer. Plan for discharge tomorrow once meets criteria.
[2019-05-01] MEDS: 0.9% NACL WITH KCL 20 MEQ/L 1,000 ML IV SCH ×4 (00:19→15:55)
[2019-05-01] MEDS: HYOSCYAMINE ORAL DROPS 1.875 MG/15 ML BOTTLE PO SCH ×3 (05:45→17:00)
[2019-05-01] MEDS: SIMETHICONE 40 MG/0.6 ML DROPS 2,000 MG/30 ML BOTTLE PO SCH ×3 (05:45→17:00)
[2019-05-01] MEDS: ONDANSETRON 4 MG/2 ML VIAL IVP SCH ×3 (05:45→16:51)
[2019-05-01] MEDS ORDERED: ENOXAPARIN 40 MG/0.4 ML SYRINGE SQ SCH (06:00)
[2019-05-01] MEDS: HYDROcodone/APAP 15 ML SOLUTION PO PRN ×2 (08:00→15:52)
[2019-05-01] MEDS: ALBUTEROL NEBULIZED 2.5 MG/3 ML INHALATION SCH ×3 (08:00→16:13)
[2019-05-01 08:45] VITALS: RESP 18
[2019-05-01 08:45] LABS: African American GFR (CKD) >90 (>60 ml/min/1.73 sqM); Anion Gap 9 mmol/L; Blood Urea Nitrogen 6 mg/dL (7-17); Calcium 8.4 mg/dL (8.4-10.2); Carbon Dioxide 22 mmol/L (22-30); Chloride 108 mmol/L (98-107); Magnesium 1.7 mg/dL (1.6-2.3); Phosphorus 2.2 mg/dL (2.5-4.5); Potassium 3.8 mmol/L (3.5-5.1); Sodium 139 mmol/L (137-145)
[2019-05-01 08:49] LABS: Basophils % (A) 0 %; Eosinophils % (A) 0 %; HCT 35.5 % (34.0-46.0); HGB 11.8 gm/dL (11.4-16.0); Lymphocytes # (A) 1.2 k/uL (1.0-4.8); Lymphocytes % (A) 13 %; MCH 27.1 pg (25.0-35.0); MCHC 33.2 g/dL (31.0-37.0); MCV 81.6 fL (80.0-100.0); Mean Platelet Volume 9.3; Monocytes # (A) 0.6 k/uL (0-1.0); Monocytes % (A) 7 %; Neutrophils # (A) 7.3 k/uL (1.3-7.7); Neutrophils % (A) 79 %; Platelet Count 255 k/uL (150-450); RBC 4.35 m/uL (3.80-5.40); RDW 14.8 % (11.5-15.5); WBC 9.2 k/uL (3.8-10.6)
[2019-05-01] MEDS ORDERED: PANTOPRAZOLE 40 MG/10 ML VIAL IV SCH (09:00)
--- NOTE | 2019-05-01 09:21 | P.PN ---
Subjective Progress Note Date: 05/01/19 Patient is doing well. Incentive spirometry education reinforced including post bariatric education. Objective - Vital Signs Vital signs: Vital Signs Temp 98.7 F 05/01/19 07:50 Pulse 92 05/01/19 08:10 Resp 18 05/01/19 07:50 BP 118/87 05/01/19 07:50 Pulse Ox 95 05/01/19 08:03 Intake & Output 04/30/19 05/01/19 05/01/19 18:59 06:59 18:59 Intake Total 1989 1350 Output Total 1340 550 Balance 650 800 Intake: IV 1950 Intake, IV Titration 1350 Amount 0.9% NaCl with KCl 20 Meq 1350 /l 1,000 ml @ 150 mls/hr IV .[id number] [facility] Rx#: [id number] Oral 40 Output: Urine 1320 550 Estimated Blood Loss 20 Other: Voiding Method Toilet Toilet # Voids 4 - Labs CBC & Chem 7: 05/01/19 07:14 05/01/19 07:14 Labs: Abnormal Lab Results - Last 24 Hours (Table) 05/01/19 Range/Units 07:14 Chloride 108 H (98-107) mmol/L BUN 6 L (7-17) mg/dL Creatinine 0.44 L (0.52-1.04) mg/dL Phosphorus 2.2 L (2.5-4.5) mg/dL
[2019-05-01] MEDS ORDERED: Phosphorus Replacement Protoco 1 EACH MISC MISCELLANE PRN (11:07)
[2019-05-01] MEDS ORDERED: SODIUM PHOSPHATE 10 MMOL in SODIUM CHLORIDE 0.9% 250 ML IVPB ONE (11:07)
[2019-05-01 13:57] VITALS: BMI 58.8
[2019-05-01 15:50] VITALS: BP 135/71; TEMP 98.5
[2019-05-01 16:26] VITALS: PULSE 82
--- NOTE | 2019-05-01 19:48 | P.DS ---
Providers Date of admission: 04/30/19 05:53 Expected date of discharge: 05/01/19 Attending physician: Louisa Strong Primary care physician: Nery Knight Plan - Discharge Summary Discharge Rx Participant: Yes New Discharge Prescriptions: New Bisacodyl [Dulcolax] 5 mg PO DAILY PRN #10 tablet. PRN Reason: Constipation Simethicone 40 mg/0.6 ml Drops [Mylicon Drops] 40 mg PO PCHS PRN #30 ml PRN Reason: Gas Ondansetron Odt [Zofran Odt] 4 mg PO Q8HR PRN #9 tab PRN Reason: Nausea HYDROcodone/APAP [[place] Elixir 7.5-325Mg/15Ml] 15 ml PO Q6H PRN #180 solution PRN Reason: Pain Continue Acetaminophen [Tylenol Extra Strength] 1,000 mg PO Q4H PRN PRN Reason: Pain Omeprazole 20 mg PO DAILY PRN PRN Reason: acid reflux Discontinued Meloxicam [Mobic] 15 mg PO DAILY PRN PRN Reason: Pain Multivitamins, Thera [Multivitamin (formulary)] 1 tab PO DAILY Cholecalciferol (Vitamin D3) [Vitamin D3] 4,000 unit PO DAILY Discharge Medication List Acetaminophen [Tylenol Extra Strength] 1,000 mg PO Q4H PRN 04/24/19 [History] Omeprazole 20 mg PO DAILY PRN 04/24/19 [History] Bisacodyl [Dulcolax] 5 mg PO DAILY PRN #10 tablet. 04/30/19 [Rx] HYDROcodone/APAP [[place] Elixir 7.5-325Mg/15Ml] 15 ml PO Q6H PRN #180 solution 04/30/19 [Rx] Ondansetron Odt [Zofran Odt] 4 mg PO Q8HR PRN #9 tab 04/30/19 [Rx] Simethicone 40 mg/0.6 ml Drops [Mylicon Drops] 40 mg PO PCHS PRN #30 ml 04/30/19 [Rx] Follow up Appointment(s)/Referral(s): Nery Knight, JOY [Primary Care Provider] - 05/08/19 11:15 am Bariatric Center,. [NON-STAFF] - 05/04/19 10:00 am (Nurse visit) Patient Instructions/Handouts: Nutrition after Bariatric Surgery (GEN), Mihai-en-Y Gastric Bypass (DC) Activity/Diet/Wound Care/Special Instructions: NO lifting over 4 pounds in 4 weeks, May 30. March shower. No bathtub soaks. Dressings to be removed by your doctor in the office. Drink 64 oz of fluid daily. Start protein shakes on . Notify bariatric center for temp over 101.0, increased pain, drainage from incisions. No straws or carbonated beverages. Liquid diet only. Sugar content should be less than 6 g to avoid dumping syndrome. Take MOM for constipation. CRUSH, OPEN, OR CUT TABLETS LARGER THAN A SIZE OF A TIC TAC Discharge Disposition: HOME SELF-CARE
[2019-05-02] MEDS ORDERED: BISACODYL 5 MG TABLET.DR PO PRN (08:00)
[2019-05-02] MEDS ORDERED: ENOXAPARIN 40 MG/0.4 ML SYRINGE SQ SCH (09:00)
== END 2019-05-01 18:35 | disposition home or self-care (01) | DRG 621 ==
LOC: 2ORMAIN 05:53 → 4SSUR 10:27
PROVIDERS: ADMIT Surgery Plastic and Reconstructive Surgery; ATTEND Surgery Plastic and Reconstructive Surgery
PROC: 8E0W4CZ Robotic Assisted Procedure of Trunk Region, Percutaneous Endoscopic Approach (ICD-10-PCS; 2019-04-30)
PROC: 0DJ08ZZ Inspection of Upper Intestinal Tract, Via Natural or Artificial Opening Endoscopic (ICD-10-PCS; 2019-04-30)
PROC: 0D164ZA Bypass Stomach to Jejunum, Percutaneous Endoscopic Approach (ICD-10-PCS; principal; 2019-04-30 07:30)
DX: E66.01 Morbid (severe) obesity due to excess calories (principal); Z68.43 Body mass index [BMI] 50.0-59.9, adult; I11.9 Hypertensive heart disease without heart failure; E55.9 Vitamin D deficiency, unspecified; G47.33 Obstructive sleep apnea (adult) (pediatric); K21.9 Gastro-esophageal reflux disease without esophagitis; M47.9 Spondylosis, unspecified; K44.9 Diaphragmatic hernia without obstruction or gangrene; M17.12 Unilateral primary osteoarthritis, left knee; R94.31 Abnormal electrocardiogram [ECG] [EKG]; I83.90 Asymptomatic varicose veins of unspecified lower extremity; Z79.1 Long term (current) use of non-steroidal anti-inflammatories (NSAID); Z79.899 Other long term (current) drug therapy; Z96.651 Presence of right artificial knee joint; Z71.3 Dietary counseling and surveillance; Z85.41 Personal history of malignant neoplasm of cervix uteri; Z87.891 Personal history of nicotine dependence; Z87.442 Personal history of urinary calculi; Z87.2 Personal history of diseases of the skin and subcutaneous tissue; Z91.018 Allergy to other foods; Z83.49 Family history of other endocrine, nutritional and metabolic diseases
CPT/HCPCS: 80051; 80053; 81025; 82310; 82565; 83735; 84100; 84520; 85025; 85027; 86850; 86900; 86901; 93005; 94640; 94760; 94762

== ENCOUNTER → 2019-05-09 | Outpatient (CLI) | payer BC ==
[2019-05-09 11:20] VITALS: BMI 57.2
[2019-05-09 11:30] VITALS: BP 145/88; PULSE 88; TEMP 97.8
--- NOTE | 2019-05-10 10:01 | P.PN ---
Subjective Progress Note Date: 05/09/19 Feeling much better. She has history of dehydration. No infection or cellulitis. Recommend protein shots small-volume. Follow-up in 1-2 weeks. Overall weight loss except above. Objective - Vital Signs Vital signs: Vital Signs Temp 97.8 F 05/09/19 11:29 Pulse 88 05/09/19 11:29 Resp BP 145/88 05/09/19 11:29 Pulse Ox Intake & Output 05/09/19 05/10/19 05/10/19 18:59 06:59 18:59 Weight 146.601 kg
== END | disposition home or self-care (01) ==
LOC: BARWHC3 10:09
PROVIDERS: ATTEND Surgery Plastic and Reconstructive Surgery
DX: E66.01 Morbid (severe) obesity due to excess calories (principal); Z68.43 Body mass index [BMI] 50.0-59.9, adult
CPT/HCPCS: 97803; 99211

== ENCOUNTER → 2019-05-23 | Outpatient (CLI) | payer BC ==
[2019-05-23 15:30] VITALS: BP 123/77; PULSE 70; TEMP 98.5
--- NOTE | 2019-05-23 15:35 | P.PN ---
Subjective Progress Note Date: 05/23/19 DATE OF SERVICE: 05/23/2019 CHIEF COMPLAINT: Status post gastric bypass HISTORY OF PRESENT ILLNESS: Roxann Nielsen is a 49-year-old female status post gastric bypass, 04/30/2019. She is 3 weeks out. She is doing very well. No nausea or vomiting. No GERD. She is staying well hydrated. Her highest personal weight was 395 pounds. Today she comes in 313 pounds from 323 pounds, 2 weeks ago. She has lost 9 pounds in 2 weeks. She has achieved 32 % excess weight loss. Her total lifetime weight loss is 82 pounds. Her height of 5 foot 3-1/4 inch, her ideal body weight is 140 pounds. She is 173 pounds ov erweight. Her initial body mass index was 69.6 now down to 55.1 PHYSICAL EXAM: VITAL SIGNS: Height 5 foot 3.25 inches, weight 313 pounds. BMI 55.1 Vital Signs Temp 98.5 F 05/23/19 14:54 Pulse 70 05/23/19 14:54 Resp BP 123/77 05/23/19 14:54 Pulse Ox GENERAL: Well-developed in no acute distress. HEENT: No scleral icterus. Extraocular movements grossly intact. Hears conversational speech. No nasal drainage. NECK: Supple without lymphadenopathy. CHEST: Nonlabored respirations with equal bilateral excursions. CARDIOVASCULAR: Regular rate and regular rhythm. Distal 2+ pulses. ABDOMEN: Obese, soft, nontender, nondistended. No infection or cellulitis. No hernias. MUSCULOSKELETAL: No clubbing, cyanosis. Gross strength 5/5 distal lower extremities. NEURO: No focal or lateralizing signs. Cranial nerves 2 through 12 grossly within normal limits. PSYCH: Appropriate affect. Alert and oriented to person, place and time. SKIN: Good skin turgor. Well perfused. ASSESSMENT: 1. Morbid obesity due to excess calories. 2. Body mass index of 69.6 down to 55.1 3. Osteoarthritis of the knees. 4. Previous right knee replacement 5. Osteoarthritis of the lower back. 6. Obstructive sleep apnea. 7. Hypertensive heart disease. 8. Dietary surveillance and counseling. 9. Family history of morbid obesity. 10. Vitamin D deficiency 11. Gastroesophageal reflux disease 12. Status post gastric bypass PLAN: 1. On May 30, she will be off all restrictions 2. She is using Prilosec 3. She is well hydrated and ready to go to work 4. She may go swimming Objective - Vital Signs Vital signs: Vital Signs Temp 98.5 F 05/23/19 14:54 Pulse 70 05/23/19 14:54 Resp BP 123/77 05/23/19 14:54 Pulse Ox Intake & Output 05/22/19 05/23/19 05/23/19 18:59 06:59 18:59 Weight 142.337 kg - Labs CBC & Chem 7: 05/23/19 16:13 05/23/19 16:13
--- NOTE | 2019-05-23 15:37 | P.PN ---
Progress Note - Text Progress Note Date: 05/23/19 To whom it may concern: Roxann Nielsen is under my surgical care. She may return to work without restrictions on June 02. Regards, Louisa Strong MD [facility]
[2019-05-23 15:39] VITALS: BMI 55.5
[2019-05-23 16:35] LABS: HCT 40.6 % (34.0-46.0); HGB 12.8 gm/dL (11.4-16.0); MCH 26.1 pg (25.0-35.0); MCHC 31.7 g/dL (31.0-37.0); MCV 82.6 fL (80.0-100.0); Mean Platelet Volume 7.7; Platelet Count 307 k/uL (150-450); RBC 4.91 m/uL (3.80-5.40); WBC 7.9 k/uL (3.8-10.6)
[2019-05-23 16:42] LABS: Partial Thromboplastin Time 23.8 sec (22.0-30.0); Prothrombin Time 10.5 sec (9.0-12.0)
[2019-05-23 23:22] LABS: Iron Saturation 15.33 (12.00-45.00)
[2019-05-23 23:29] LABS: Vitamin D 25 Hydroxy 27.4 ng/mL (30.0-100.0)
[2019-05-23 23:36] LABS: Folate, Serum 21.8 ng/mL
[2019-05-24 04:37] LABS: Hemoglobin A1C 5.1 % (4.0-6.0)
[2019-05-24 06:06] LABS: African American GFR (CKD) 124.9 (60.0-200.0); Albumin 4.2 g/dL (3.80-4.90); Albumin/Globulin Ratio 1.68 (1.60-3.17); Anion Gap 14.6 mmol/L (4.00-12.00); Calcium 9.6 mg/dL (8.7-10.3); Carbon Dioxide 24.4 mmol/L (21.6-31.8); Chol/HDL Ratio 4.72; Globulin 2.5 g/dL (1.6-3.3); Magnesium 1.8 mg/dL (1.5-2.4); Phosphorus 2.9 mg/dL (2.4-5.1); Potassium 3.9 mmol/L (3.5-5.5); Total Bilirubin 0.3 mg/dL (0.3-1.2); Total Protein 6.7 g/dL (6.2-8.2)
[2019-05-24 13:04] LABS: Zinc, Serum 81 ug/dL (60-130)
[2019-05-25 06:45] LABS: Vitamin A 22 ug/dL (38-106)
[2019-05-25 07:29] LABS: Vit B1(Thiamine) 65 ug/L (38-122)
[2019-05-26 17:30] LABS: Selenium 123 mcg/L (63-160)
== END | disposition home or self-care (01) ==
LOC: BARWHC3 13:58
PROVIDERS: ATTEND Surgery Plastic and Reconstructive Surgery
DX: Z48.815 Encounter for surgical aftercare following surgery on the digestive system (principal); E66.01 Morbid (severe) obesity due to excess calories; M17.0 Bilateral primary osteoarthritis of knee; M47.816 Spondylosis without myelopathy or radiculopathy, lumbar region; G47.33 Obstructive sleep apnea (adult) (pediatric); I11.9 Hypertensive heart disease without heart failure; E55.9 Vitamin D deficiency, unspecified; K21.9 Gastro-esophageal reflux disease without esophagitis; E21.1 Secondary hyperparathyroidism, not elsewhere classified; E89.1 Postprocedural hypoinsulinemia; D50.9 Iron deficiency anemia, unspecified; K90.9 Intestinal malabsorption, unspecified; K76.9 Liver disease, unspecified; N19 Unspecified kidney failure; K50.90 Crohn's disease, unspecified, without complications; Z71.3 Dietary counseling and surveillance; Z68.43 Body mass index [BMI] 50.0-59.9, adult; Z98.84 Bariatric surgery status; Z96.651 Presence of right artificial knee joint; Z79.899 Other long term (current) drug therapy
CPT/HCPCS: 80053; 80061; 82306; 82525; 82607; 82728; 82746; 83036; 83540; 83550; 83735; 83970; 84100; 84134; 84255; 84425; 84443; 84590; 84630; 85027; 85610; 85730; 97803; 99211

== ENCOUNTER → 2019-08-01 | Outpatient (CLI) | payer BC ==
[2019-08-01 15:57] VITALS: BP 120/80; PULSE 64; RESP 16; TEMP 97.6; BMI 47.9
--- NOTE | 2019-08-01 16:15 | P.PN ---
Subjective Progress Note Date: 08/01/19 DATE OF SERVICE: 08/01/2019 CHIEF COMPLAINT: Status post gastric bypass HISTORY OF PRESENT ILLNESS: Roxann Nielsen is a 49-year-old female status post gastric bypass, 04/30/2019. Highest weight 395 pounds. She has lost 40 pounds in 2 months. Her protein intake is under 75 g daily. She had 60 pound weight loss in 3 months. No dysphagia. No gastroesophageal reflux disease. She has no knee pain. Her knee pain has improved. She has lower back pain. She has constipation improved from once per week to three times weekly. Her highest personal weight was 395 pounds. Today she comes in 273 pounds from 313 pounds, 2 months ago. She has lost 41 pounds in 2 months. She has achieved 48 % excess weight loss. Her total lifetime weight loss is 122 pounds. Her height of 5 foot 3.25 inch, her ideal body weight is 140 pounds. She is 133 pounds overweight. Her initial body mass index was 69.6 now down to 48.0. PHYSICAL EXAM: VITAL SIGNS: Height 5 foot 3.25 inches, weight 273 pounds. BMI 48.0 Vital Signs Temp 97.6 F 08/01/19 15:55 Pulse 64 08/01/19 15:55 Resp 16 08/01/19 15:55 BP 120/80 08/01/19 15:55 Pulse Ox GENERAL: Well-developed in no acute distress. HEENT: No scleral icterus. Extraocular movements grossly intact. Hears conversational speech. No nasal drainage. NECK: Supple without lymphadenopathy. CHEST: Nonlabored respirations with equal bilateral excursions. CARDIOVASCULAR: Regular rate and regular rhythm. Distal 2+ pulses. ABDOMEN: Obese, soft, nontender, nondistended. No hernia MUSCULOSKELETAL: No clubbing, cyanosis. Gross strength 5/5 distal lower extremities. NEURO: No focal or lateralizing signs. Cranial nerves 2 through 12 grossly wit hin normal limits. PSYCH: Appropriate affect. Alert and oriented to person, place and time. SKIN: Good skin turgor. Well perfused. ASSESSMENT: 1. Morbid obesity due to excess calories. 2. Body mass index of 69.6 down to 48.0 3. Osteoarthritis of the knees. 4. Previous right knee replacement 5. Osteoarthritis of the lower back. 6. Obstructive sleep apnea. 7. Hypertensive heart disease. 8. Dietary surveillance and counseling. 9. Family history of morbid obesity. 10. Vitamin D deficiency 11. Gastroesophageal reflux disease 12. Status post gastric bypass PLAN: 1. Increase protein intake of at least 75 grams described 2. Recommend bariatric labs. Laboratory Last Values WBC 7.0 k/uL (3.8-10.6) 08/01/19 17:07 RBC 4.54 m/uL (3.80-5.40) 08/01/19 17:07 Hgb 12.5 gm/dL (11.4-16.0) 08/01/19 17:07 Hct 38.0 % (34.0-46.0) 08/01/19 17:07 MCV 83.7 fL (80.0-100.0) 08/01/19 17:07 MCH 27.5 pg (25.0-35.0) 08/01/19 17:07 MCHC 32.9 g/dL (31.0-37.0) 08/01/19 17:07 RDW 16.1 % (11.5-15.5) H 08/01/19 17:07 Plt Count 279 k/uL (150-450) 08/01/19 17:07 Anisocytosis Slight 08/01/19 17:07 PT 10.1 sec (9.0-12.0) 08/01/19 17:07 INR 0.9 (<1.2) 08/01/19 17:07 APTT 24.3 sec (22.0-30.0) 08/01/19 17:07 Sodium 141 mmol/L (135-145) 08/01/19 17:07 Potassium 3.5 mmol/L (3.5-5.5) 08/01/19 17:07 Chloride 104 mmol/L (96-109) 08/01/19 17:07 Carbon Dioxide 26.2 mmol/L (21.6-31.8) 08/01/19 17:07 Anion Gap 10.80 mmol/L (4.00-12.00) 08/01/19 17:07 BUN 9.0 mg/dL (9.0-27.0) 08/01/19 17:07 Creatinine 0.4 mg/dL (0.6-1.5) L 08/01/19 17:07 Est GFR (CKD-EPI)AfAm 142.7 (60.0-200.0) 08/01/19 17:07 Est GFR (CKD-EPI)NonAf 123.2 (60.0-200.0) 08/01/19 17:07 BUN/Creatinine Ratio 22.50 Ratio (12.00-20.00) H 08/01/19 17:07 Glucose 91 mg/dL (70-110) 08/01/19 17:[address] Glu mg/dL 100 08/01/19 17:07 Hemoglobin A1c 5.1 % (4.0-6.0) 08/01/19 17:07 Calcium 9.4 mg/dL (8.7-10.3) 08/01/19 17:07 Phosphorus 3.2 mg/dL (2.4-5.1) 08/01/19 17:07 Magnesium 1.6 mg/dL (1.5-2.4) 08/01/19 17:07 Iron 39 ug/dL (50-170) L 08/01/19 17:07 TIBC 290 ug/dL (228-460) 08/01/19 17:07 Iron Saturation 13.45 (12.00-45.00) 08/01/19 17:07 Ferritin 22.4 ng/mL (10.0-291.0) 08/01/19 17:07 Total Bilirubin 0.4 mg/dL (0.3-1.2) 08/01/19 17:07 AST 28 U/L (13-35) 08/01/19 17:07 ALT 20 U/L (8-44) 08/01/19 17:07 Alkaline Phosphatase 111 U/L (41-126) 08/01/19 17:07 Total Protein 6.5 g/dL (6.2-8.2) 08/01/19 17:07 Albumin 4.20 g/dL (3.80-4.90) 08/01/19 17:07 Globulin 2.3 g/dL (1.6-3.3) 08/01/19 17:07 Albumin/Globulin Ratio 1.83 g/dL (1.60-3.17) 08/01/19 17:07 Prealbumin 8.0 mg/dL (18.0-42.0) L 08/01/19 17:07 Triglycerides 104.0 mg/dL (0.0-149.0) 08/01/19 17:07 Cholesterol 157 mg/dL (0-200) 08/01/19 17:07 LDL Cholesterol, Calc 96.2 mg/dL (0.0-131.0) 08/01/19 17:07 VLDL Cholesterol, Calc 20.80 mg/dL (5.00-40.00) 08/01/19 17:07 HDL Cholesterol 40.0 mg/dL (40.0-60.0) 08/01/19 17:07 Cholesterol/HDL Ratio 3.93 08/01/19 17:07 Vitamin A 21 ug/dL (38-106) L 08/01/19 17:07 Vitamin B12 2497.0 pg/mL (200.0-944.0) H 08/01/19 17:07 Vitamin D 25-Hydroxy 44.8 ng/mL (30.0-100.0) 08/01/19 17:07 Folate 20.6 ng/mL 08/01/19 17:07 TSH 0.870 uIU/mL (0.350-5.500) 08/01/19 17:07 PTH Intact 56.3 pg/mL (14.0-72.0) 08/01/19 17:07 Copper 1207 ug/L (810-1990) 08/01/19 17:07 Selenium 66 mcg/L (63-160) 08/01/19 17:07 Zinc 54 ug/dL (60-130) L 08/01/19 17:07 Iron is low Prealbumin is low Vitamin A is low Zinc is low Objective - Vital Signs Vital signs: Vital Signs Temp 97.6 F 08/01/19 15:55 Pulse 64 08/01/19 15:55 Resp 16 08/01/19 15:55 BP 120/80 08/01/19 15:55 Pulse Ox Intake & Output 07/31/19 08/01/19 08/01/19 18:59 06:59 18:59 Weight 123.887 kg - Labs CBC & Chem 7: 08/01/19 17:07 08/01/19 17:07
[2019-08-01 17:42] LABS: Anisocytosis Slight; HGB 12.5 gm/dL (11.4-16.0); MCH 27.5 pg (25.0-35.0); MCHC 32.9 g/dL (31.0-37.0); MCV 83.7 fL (80.0-100.0); Mean Platelet Volume 7.8; Platelet Count 279 k/uL (150-450); RBC 4.54 m/uL (3.80-5.40); RDW 16.1 % (11.5-15.5)
[2019-08-01 17:45] LABS: INR 0.9 (<1.2); Partial Thromboplastin Time 24.3 sec (22.0-30.0); Prothrombin Time 10.1 sec (9.0-12.0)
[2019-08-01 22:50] LABS: Iron Saturation 13.45 (12.00-45.00)
[2019-08-01 22:54] LABS: African American GFR (CKD) 142.7 (60.0-200.0); Albumin 4.2 g/dL (3.80-4.90); Albumin/Globulin Ratio 1.83 (1.60-3.17); Anion Gap 10.8 mmol/L (4.00-12.00); BUN/Creat Ratio 22.5 Ratio (12.00-20.00); Calcium 9.4 mg/dL (8.7-10.3); Carbon Dioxide 26.2 mmol/L (21.6-31.8); Chol/HDL Ratio 3.93; Globulin 2.3 g/dL (1.6-3.3); LDL Cholesterol,Calculated 96.2 mg/dL (0.0-131.0); Magnesium 1.6 mg/dL (1.5-2.4); Phosphorus 3.2 mg/dL (2.4-5.1); Potassium 3.5 mmol/L (3.5-5.5); Total Bilirubin 0.4 mg/dL (0.3-1.2); Total Protein 6.5 g/dL (6.2-8.2); VLDL Calculation 20.8 mg/dL (5.00-40.00)
[2019-08-01 22:55] LABS: Ferritin 22.4 ng/mL (10.0-291.0); Vitamin D 25 Hydroxy 44.8 ng/mL (30.0-100.0)
[2019-08-01 23:28] LABS: Folate, Serum 20.6 ng/mL
[2019-08-01 23:31] LABS: Hemoglobin A1C 5.1 % (4.0-6.0)
[2019-08-02 11:25] LABS: Zinc, Serum 54 ug/dL (60-130)
[2019-08-03 06:49] LABS: Vitamin A 21 ug/dL (38-106)
[2019-08-04 21:12] LABS: Selenium 66 mcg/L (63-160)
[2019-08-06 15:05] LABS: Vit B1(Thiamine) 33 ug/L (38-122)
== END | disposition home or self-care (01) ==
LOC: BARWHC3 14:36
PROVIDERS: ATTEND Surgery Plastic and Reconstructive Surgery
DX: E66.01 Morbid (severe) obesity due to excess calories (principal); Z68.42 Body mass index [BMI] 45.0-49.9, adult; M17.9 Osteoarthritis of knee, unspecified; M46.96 Unspecified inflammatory spondylopathy, lumbar region; G47.33 Obstructive sleep apnea (adult) (pediatric); I11.9 Hypertensive heart disease without heart failure; E55.9 Vitamin D deficiency, unspecified; K21.9 Gastro-esophageal reflux disease without esophagitis; K59.00 Constipation, unspecified; Z96.651 Presence of right artificial knee joint; Z71.3 Dietary counseling and surveillance; Z98.84 Bariatric surgery status; E21.1 Secondary hyperparathyroidism, not elsewhere classified; E89.1 Postprocedural hypoinsulinemia; K90.9 Intestinal malabsorption, unspecified; K74.1 Hepatic sclerosis; N19 Unspecified kidney failure; K50.90 Crohn's disease, unspecified, without complications
CPT/HCPCS: 80053; 80061; 82306; 82525; 82607; 82728; 82746; 83036; 83540; 83550; 83735; 83970; 84100; 84134; 84255; 84425; 84443; 84590; 84630; 85027; 85610; 85730; 97803; 99211

== ENCOUNTER → 2019-10-17 | Outpatient (CLI) | payer BC, OTHER ==
--- NOTE | 2019-10-17 15:39 | P.PN ---
Subjective Progress Note Date: 10/17/19 DATE OF SERVICE: 10/17/2019 CHIEF COMPLAINT: Status post gastric bypass HISTORY OF PRESENT ILLNESS: Roxann Nielsen is a 49-year-old female status post gastric bypass, 04/30/2019. She denies any food getting stuck. She denies any abdominal pain. No gastroesophageal reflux disease. Her protein intake is 63+ grams daily. She is 6 months out and lost 100 pounds. Her highest personal weight was 395 pounds. Today she comes in 247 pounds from 273 pounds, 3 months ago. She has lost 26 pounds in 3 months. She has achieved 58 % excess weight loss. Her total lifetime weight loss is 148 pounds. Height of 5 foot 3.25 inch, her ideal body weight is 140 pounds. She is 107 pounds overweight. Her initial body mass index was 69.6 now down to 43.5. PHYSICAL EXAM: VITAL SIGNS: Height 5 foot 3.25 inches, weight 247 pounds. BMI 43.4 Vital Signs Temp 97.8 F 10/17/19 15:45 Pulse 57 L 10/17/19 15:45 Resp 16 10/17/19 15:45 BP 122/82 10/17/19 15:45 Pulse Ox GENERAL: Well-developed in no acute distress. HEENT: No scleral icterus. Extraocular movements grossly intact. Hears conversational speech. No nasal drainage. NECK: Supple without lymphadenopathy. CHEST: Nonlabored respirations with equal bilateral excursions. CARDIOVASCULAR: Regular rate and regular rhythm. Distal 2+ pulses. ABDOMEN: Obese, soft, nontender, nondistended. No hernia MUSCULOSKELETAL: No clubbing, cyanosis. Gross strength 5/5 distal lower extremities. NEURO: No focal or lateralizing signs. Cranial nerves 2 through 12 grossly within normal limits. PSYCH: Appropriate affect. Alert and oriented to person, place and time. SKIN: Good skin turgor. Well perfused. LABS: Reviewed from last visit. Iron is low Prealbumin is low Vitamin A is low Zinc is low ASSESSMENT: 1. Morbid obesity due to excess calories. 2. Body mass index of 69.6 down to 43.4 3. Osteoarthritis of the knees. 4. Previous right knee replacement 5. Osteoarthritis of the lower back. 6. Obstructive sleep apnea. 7. Hypertensive heart disease. 8. Dietary surveillance and counseling. 9. Family history of morbid obesity. 10. Vitamin D deficiency 11. Gastroesophageal reflux disease 12. Status post gastric bypass PLAN: 1. Recommend bariatric labs 2. Zinc supplement 50 mg daily 3. Vitamin A supplement 10,000 units daily 4. Iron supplement 325 TID daily
[2019-10-17 15:51] VITALS: BP 122/82; PULSE 57; RESP 16; TEMP 97.8; BMI 43.4
== END | disposition home or self-care (01) ==
LOC: BARWHC3 14:50
PROVIDERS: ATTEND Surgery Plastic and Reconstructive Surgery
DX: Z48.815 Encounter for surgical aftercare following surgery on the digestive system (principal); E66.01 Morbid (severe) obesity due to excess calories; M17.0 Bilateral primary osteoarthritis of knee; G47.33 Obstructive sleep apnea (adult) (pediatric); I11.9 Hypertensive heart disease without heart failure; Z83.49 Family history of other endocrine, nutritional and metabolic diseases; E55.9 Vitamin D deficiency, unspecified; K21.9 Gastro-esophageal reflux disease without esophagitis; Z68.41 Body mass index [BMI] 40.0-44.9, adult; Z71.3 Dietary counseling and surveillance; Z96.651 Presence of right artificial knee joint; Z98.84 Bariatric surgery status
CPT/HCPCS: 97803; 99211

== ENCOUNTER → 2019-10-17 | Outpatient (CLI) | payer BC, OTHER ==
[2019-10-17 16:40] LABS: HGB 11.7 gm/dL (11.4-16.0); MCH 28.9 pg (25.0-35.0); MCHC 33.4 g/dL (31.0-37.0); MCV 86.4 fL (80.0-100.0); Mean Platelet Volume 7.5; Platelet Count 267 k/uL (150-450); RBC 4.05 m/uL (3.80-5.40); RDW 13.3 % (11.5-15.5); WBC 7.5 k/uL (3.8-10.6)
[2019-10-17 16:51] LABS: INR 0.9 (<1.2)
[2019-10-17 23:42] LABS: Hemoglobin A1C 4.9 % (4.0-6.0)
[2019-10-18 01:25] LABS: % Iron Saturation 11.88 (12.00-45.00); African American GFR (CKD) 124.9 (60.0-200.0); Albumin 4.3 g/dL (3.80-4.90); Albumin/Globulin Ratio 1.95 (1.60-3.17); Anion Gap 9.6 mmol/L (4.00-12.00); BUN/Creat Ratio 21.67 Ratio (12.00-20.00); Calcium 9.4 mg/dL (8.7-10.3); Carbon Dioxide 25.4 mmol/L (21.6-31.8); Chol/HDL Ratio 3.31; Globulin 2.2 g/dL (1.6-3.3); LDL Cholesterol,Calculated 89.8 mg/dL (0.0-131.0); Magnesium 1.9 mg/dL (1.5-2.4); Non-African American GFR(CKD) 107.8 (60.0-200.0); Phosphorus 3.3 mg/dL (2.4-5.1); Potassium 3.9 mmol/L (3.5-5.5); Total Bilirubin 0.4 mg/dL (0.3-1.2); Total Protein 6.5 g/dL (6.2-8.2); VLDL Calculation 14.2 mg/dL (5.00-40.00)
[2019-10-18 02:20] LABS: Ferritin 13.1 ng/mL (10.0-291.0); Folate, Serum 21.4 ng/mL
[2019-10-18 12:55] LABS: Zinc, Serum 79 ug/dL (60-130)
[2019-10-19 06:25] LABS: Vitamin A 27 ug/dL (38-106)
[2019-10-19 06:51] LABS: Vit B1(Thiamine) 95 ug/L (38-122)
== END | disposition home or self-care (01) ==
LOC: LABWHC1 16:05
PROVIDERS: ATTEND Surgery Plastic and Reconstructive Surgery
DX: E21.1 Secondary hyperparathyroidism, not elsewhere classified (principal); E66.01 Morbid (severe) obesity due to excess calories; D50.9 Iron deficiency anemia, unspecified; K90.9 Intestinal malabsorption, unspecified; E44.0 Moderate protein-calorie malnutrition; E55.9 Vitamin D deficiency, unspecified; K74.1 Hepatic sclerosis; N19 Unspecified kidney failure; K50.90 Crohn's disease, unspecified, without complications; E89.1 Postprocedural hypoinsulinemia
CPT/HCPCS: 36415; 80053; 80061; 82306; 82525; 82607; 82728; 82746; 83036; 83540; 83550; 83735; 83970; 84100; 84134; 84255; 84425; 84443; 84590; 84630; 85027; 85610; 85730

== ENCOUNTER → 2020-02-20 | Outpatient (CLI) | payer BC ==
[2020-02-20 14:36] VITALS: BP 116/79; PULSE 59; RESP 16; TEMP 97.7; BMI 42.7
--- NOTE | 2020-02-20 14:52 | P.PN ---
Subjective Progress Note Date: 02/20/20 DATE OF SERVICE: 02/20/2020 CHIEF COMPLAINT: Status post gastric bypass HISTORY OF PRESENT ILLNESS: Roxann Nielsen is a 49-year-old female status post gastric bypass, 04/30/2019. She has lost 100 pounds in 2 years. She is over 9 months out. She reports slow weight loss. She denies any abdominal pain. Her highest weight is 398 pounds lifetime. She does not see her weight loss despite looking into mirrors. She is fitting into smaller clothes. No gastroesohageal reflux disease. No frequent dysphagia. She is taking Omeprazole. Her highest personal weight was 398 pounds. Today she comes in 242 pounds from 247 pounds, 4 months ago. She has lost 4 pounds in 4 months. She has achieved 60 % excess weight loss lifetime. Her total lifetime weight loss is 156 pounds. Height of 5 foot 3.25 inch, her ideal body weight is 140 pounds. She is 102 pounds overweight. Her initial body mass index was 70.1 now down to 42.7 PHYSICAL EXAM: VITAL SIGNS: Height 5 foot 3.25 inches, weight 242 pounds. BMI 42.7 Vital Signs Temp 97.7 F 02/20/20 14:34 Pulse 59 L 02/20/20 14:34 Resp 16 02/20/20 14:34 BP 116/79 02/20/20 14:34 Pulse Ox Intake & Output 02/20/20 02/21/20 02/21/20 18:59 06:59 18:59 Weight 110.223 kg GENERAL: Well-developed in no acute distress. HEENT: No scleral icterus. Extraocular movements grossly intact. Hears conversational speech. No nasal drainage. NECK: Supple without lymphadenopathy. CHEST: Nonlabored respirations with equal bilateral excursions. CARDIOVASCULAR: Regular rate and regular rhythm. Distal 2+ pulses. ABDOMEN: Obese, soft, nontender, nondistended. No hernia MUSCULOSKELETAL: No clubbing, cyanosis. NEURO: No focal or lateralizing signs. Cranial nerves 2 through 12 grossly within normal limits. PSYCH: Appropriate affect. Alert and oriented to person, place and time. SKIN: Good skin turgor. Well perfused. ASSESSMENT: 1. Morbid obesity due to excess calories. 2. Body mass index of 70.1 down to 42.7 3. Osteoarthritis of the knees. 4. Previous right knee replacement 5. Osteoarthritis of the lower back. 6. Obstructive sleep apnea. 7. Hypertensive heart disease. 8. Dietary surveillance and counseling. 9. Family history of morbid obesity. 10. Vitamin D deficiency 11. Gastroesophageal reflux disease 12. Status post gastric bypass PLAN: 1. Recommend bariatric labs. 2. Recommend increase protein at 70 to 90 grams daily 3. Recommend change multivitamin with increased vitamin B complex and iron Objective - Vital Signs Vital signs: Vital Signs Temp 97.7 F 02/20/20 14:34 Pulse 59 L 02/20/20 14:34 Resp 16 02/20/20 14:34 BP 116/79 02/20/20 14:34 Pulse Ox Intake & Output 02/19/20 02/20/20 02/20/20 18:59 06:59 18:59 Weight 110.223 kg
== END | disposition home or self-care (01) ==
LOC: BARWHC3 14:06
PROVIDERS: ATTEND Surgery Plastic and Reconstructive Surgery
DX: E66.01 Morbid (severe) obesity due to excess calories (principal); Z68.41 Body mass index [BMI] 40.0-44.9, adult; M17.9 Osteoarthritis of knee, unspecified; M47.816 Spondylosis without myelopathy or radiculopathy, lumbar region; G47.33 Obstructive sleep apnea (adult) (pediatric); I11.9 Hypertensive heart disease without heart failure; Z71.3 Dietary counseling and surveillance; E55.9 Vitamin D deficiency, unspecified; K21.9 Gastro-esophageal reflux disease without esophagitis; Z96.651 Presence of right artificial knee joint; Z98.84 Bariatric surgery status
CPT/HCPCS: 97803; 99211

== ENCOUNTER → 2020-03-05 | Outpatient (CLI) | payer BC, OTHER ==
[2020-03-05 12:38] LABS: HCT 37.4 % (34.0-46.0); HGB 12.5 gm/dL (11.4-16.0); MCH 29.4 pg (25.0-35.0); MCHC 33.5 g/dL (31.0-37.0); MCV 87.7 fL (80.0-100.0); Mean Platelet Volume 7.8; Platelet Count 239 k/uL (150-450); RBC 4.26 m/uL (3.80-5.40); WBC 5.5 k/uL (3.8-10.6)
[2020-03-05 13:01] LABS: INR 0.9 (<1.2); Partial Thromboplastin Time 23.8 sec (22.0-30.0); Prothrombin Time 9.8 sec (9.0-12.0)
[2020-03-05 18:52] LABS: % Iron Saturation 13.33 (12.00-45.00); African American GFR (CKD) 132.6 (60.0-200.0); Albumin 4.1 g/dL (3.80-4.90); Albumin/Globulin Ratio 1.71 (1.60-3.17); Anion Gap 10.6 mmol/L (4.00-12.00); Calcium 9.1 mg/dL (8.7-10.3); Carbon Dioxide 27.4 mmol/L (21.6-31.8); Chol/HDL Ratio 3.07; Globulin 2.4 g/dL (1.6-3.3); LDL Cholesterol,Calculated 77.8 mg/dL (0.0-131.0); Magnesium 1.8 mg/dL (1.5-2.4); Non-African American GFR(CKD) 114.4 (60.0-200.0); Phosphorus 3.9 mg/dL (2.4-5.1); Potassium 4.2 mmol/L (3.5-5.5); Total Bilirubin 0.2 mg/dL (0.3-1.2); Total Protein 6.5 g/dL (6.2-8.2); VLDL Calculation 17.2 mg/dL (5.00-40.00)
[2020-03-05 19:03] LABS: Ferritin 16.5 ng/mL (10.0-291.0)
[2020-03-06 13:10] LABS: Zinc, Serum 75 ug/dL (60-130)
[2020-03-07 08:39] LABS: Vitamin A 31 ug/dL (38-106)
[2020-03-07 09:20] LABS: Vit B1(Thiamine) 99 ug/L (38-122)
== END | disposition home or self-care (01) ==
LOC: LABWHC1 11:39
PROVIDERS: ATTEND Surgery Plastic and Reconstructive Surgery
DX: E66.01 Morbid (severe) obesity due to excess calories (principal); E21.1 Secondary hyperparathyroidism, not elsewhere classified; E89.1 Postprocedural hypoinsulinemia; K90.9 Intestinal malabsorption, unspecified; E55.9 Vitamin D deficiency, unspecified; K74.1 Hepatic sclerosis; N19 Unspecified kidney failure; K50.90 Crohn's disease, unspecified, without complications; D50.9 Iron deficiency anemia, unspecified
CPT/HCPCS: 36415; 80053; 80061; 82306; 82525; 82607; 82728; 82746; 83036; 83540; 83550; 83735; 83970; 84100; 84134; 84255; 84425; 84443; 84590; 84630; 85027; 85610; 85730

== ENCOUNTER → 2020-04-23 | Outpatient (CLI) | payer BC ==
[2020-04-23 14:15] VITALS: BP 106/69; PULSE 68; RESP 16; TEMP 98.2; BMI 40.6
--- NOTE | 2020-04-23 14:21 | P.PN ---
Subjective Progress Note Date: 04/23/20 DATE OF SERVICE: 04/23/2020 CHIEF COMPLAINT: Status post gastric bypass HISTORY OF PRESENT ILLNESS: Roxann Nielsen is a 50-year-old female status post gastric bypass, 04/30/2019. She is 1 year out. She denies gastroesophageal reflux disease. She denies dysphagia. Currently, she denies troubles with her skin. She denies hair loss. She reports improvement of her gastroesophageal reflux disease. Also improvement of her sleep apnea. Her highest personal weight was 398 pounds, BMI 70.1. Today she comes in 231 pounds from 242 pounds, 2 months ago. She has lost 12 pounds in 2 months. She has achieved 65 % excess weight loss lifetime. Her total lifetime weight loss is 167 pounds. Height of 5 foot 3.25 inch, her ideal body weight is 140 pounds. She is 91 pounds overweight. Her initial body mass index was 70.1 now down to 40.6. PHYSICAL EXAM: VITAL SIGNS: Height 5 foot 3.25 inches, weight 231 pounds. BMI 40.6 Vital Signs Temp 98.2 F 04/23/20 14:11 Pulse 68 04/23/20 14:11 Resp 16 04/23/20 14:11 BP 106/69 04/23/20 14:11 Pulse Ox GENERAL: Well-developed in no acute distress. HEENT: No scleral icterus. Extraocular movements grossly intact. Hears conversational speech. No nasal drainage. NECK: Supple without lymphadenopathy. CHEST: Nonlabored respirations with equal bilateral excursions. CARDIOVASCULAR: Regular rate and regular rhythm. Distal 2+ pulses. ABDOMEN: Obese, soft, nontender, nondistended. No hernia MUSCULOSKELETAL: No clubbing, cyanosis. NEURO: No focal or lateralizing signs. Cranial nerves 2 through 12 grossly within normal limits. PSYCH: Appropriate affect. Alert and oriented to person, place and time. SKIN: Good skin turgor. Well perfused. LABS: Previous labs were reviewed with iron low at 42. Prealbumin low 17. Vitamin A low at 31. ASSESSMENT: 1. Morbid obesity due to excess calories. 2. Body mass index of 70.1 down to 40.6 3. Osteoarthritis of the knees. 4. Previous right knee replacement 5. Osteoarthritis of the lower back. 6. Obstructive sleep apnea. 7. Hypertensive heart disease. 8. Dietary surveillance and counseling. 9. Family history of morbid obesity. 10. Vitamin D deficiency 11. Gastroesophageal reflux disease 12. Status post gastric bypass 13. Iron deficiency 14. Vitamin A deficiency PLAN: 1. She is 1 year out. Recommend bariatric labs reviewed. 2. Follow up in 1 year. Objective - Vital Signs Vital signs: Vital Signs Temp 98.2 F 04/23/20 14:11 Pulse 68 04/23/20 14:11 Resp 16 04/23/20 14:11 BP 106/69 04/23/20 14:11 Pulse Ox Intake & Output 04/22/20 04/23/20 04/23/20 18:59 06:59 18:59 Weight 104.78 kg
== END | disposition home or self-care (01) ==
LOC: BARWHC3 13:34
PROVIDERS: ATTEND Surgery Plastic and Reconstructive Surgery
DX: E66.01 Morbid (severe) obesity due to excess calories (principal); Z68.41 Body mass index [BMI] 40.0-44.9, adult; M17.10 Unilateral primary osteoarthritis, unspecified knee; M47.816 Spondylosis without myelopathy or radiculopathy, lumbar region; G47.33 Obstructive sleep apnea (adult) (pediatric); I11.9 Hypertensive heart disease without heart failure; E55.9 Vitamin D deficiency, unspecified; K21.9 Gastro-esophageal reflux disease without esophagitis; E50.9 Vitamin A deficiency, unspecified; E60 Dietary zinc deficiency; Z71.3 Dietary counseling and surveillance; Z98.84 Bariatric surgery status
CPT/HCPCS: 97803; 99211

== ENCOUNTER → 2020-04-28 | Outpatient (CLI) | payer BC, OTHER ==
[2020-04-28 11:35] LABS: HCT 41.2 % (34.0-46.0); HGB 13.3 gm/dL (11.4-16.0); MCH 28.9 pg (25.0-35.0); MCHC 32.2 g/dL (31.0-37.0); MCV 89.7 fL (80.0-100.0); Mean Platelet Volume 8.3; Platelet Count 226 k/uL (150-450); WBC 5.3 k/uL (3.8-10.6)
[2020-04-28 11:59] LABS: INR 0.9 (<1.2); Partial Thromboplastin Time 23.6 sec (22.0-30.0); Prothrombin Time 9.9 sec (9.0-12.0)
[2020-04-28 16:48] LABS: Hemoglobin A1C 4.8 % (4.0-6.0)
[2020-04-28 17:56] LABS: % Iron Saturation 20.28 (12.00-45.00); African American GFR (CKD) 131.7 (60.0-200.0); Albumin/Globulin Ratio 1.74 (1.60-3.17); Anion Gap 5.6 mmol/L (4.00-12.00); Calcium 9.1 mg/dL (8.7-10.3); Carbon Dioxide 28.4 mmol/L (21.6-31.8); Chol/HDL Ratio 2.95; Folate, Serum 22.7 ng/mL; Globulin 2.3 g/dL (1.6-3.3); LDL Cholesterol,Calculated 69.6 mg/dL (0.0-131.0); Magnesium 1.9 mg/dL (1.5-2.4); Non-African American GFR(CKD) 113.6 (60.0-200.0); Potassium 4.3 mmol/L (3.5-5.5); Total Bilirubin 0.3 mg/dL (0.3-1.2); Total Protein 6.3 g/dL (6.2-8.2); VLDL Calculation 10.4 mg/dL (5.00-40.00)
[2020-04-30 08:14] LABS: Vit B1(Thiamine) 108 ug/L (38-122)
[2020-04-30 08:17] LABS: Vitamin A 26 ug/dL (38-106)
[2020-05-02 13:06] LABS: Zinc, Serum 37 ug/dL (60-130)
== END | disposition home or self-care (01) ==
LOC: LABWHC1 10:04
PROVIDERS: ATTEND Surgery Plastic and Reconstructive Surgery
DX: E21.1 Secondary hyperparathyroidism, not elsewhere classified (principal); D50.9 Iron deficiency anemia, unspecified; E44.0 Moderate protein-calorie malnutrition; E55.9 Vitamin D deficiency, unspecified; K74.1 Hepatic sclerosis; N19 Unspecified kidney failure; K50.90 Crohn's disease, unspecified, without complications
CPT/HCPCS: 36415; 80053; 80061; 82306; 82525; 82607; 82728; 82746; 83036; 83540; 83550; 83735; 83970; 84100; 84134; 84255; 84425; 84443; 84590; 84630; 85027; 85610; 85730